=== PATIENT | female | born 1935 | race Two or more races ===

== ENCOUNTER 2018-11-25 17:45 | Emergency (ER) | payer MEDICARE, MEDICAID ==
[~2018-11-25] VITALS: Ht 152.4 cm; Wt 50.0 kg
[~2018-11-25 17:45] MED LIST: ADENOSINE 3 MG/ML 2ML VIAL IV ONE; ATROPINE SULFATE 1MG/10ML SYR ONE; EPINEPHRINE 0.1MG/ML (1:10,000) 10ML SYR ONE; NALOXONE HCL 0.4 MG/ML 1ML VIAL ONE; SODIUM BICARBONATE 8.4% 1 MEQ/ML 50ML SYR IV ONE
[2018-11-25 17:59] VITALS: BP 0/0
[2018-11-25] MEDS ORDERED: EPINEPHRINE 0.1MG/ML (1:10,000) 10ML SYR ONE (18:00)
[2018-11-25] MEDS ORDERED: METO-396 PO (18:04)
[2018-11-25] MEDS ORDERED: AMLO2.5T45 PO (18:04)
[2018-11-25] MEDS ORDERED: LOSA25TA12 PO (18:04)
[2018-11-25] MEDS ORDERED: SITA25TA3 PO (18:04)
[2018-11-25] MEDS ORDERED: NOREPINEPHRINE 4MG/250ML PMX 250 ML IV ONE (18:11)
[2018-11-25] MEDS ORDERED: VANCOMYCIN 1 G PREMIX 200 ML IV ONE (18:30)
[2018-11-25] MEDS ORDERED: PIPERACILLIN/TAZ 3.375G PREMIX 50 ML IV ONE (18:30)
[2018-11-25] MEDS ORDERED: PROPOFOL 10MG/ML 100ML 100 ML IV SCH (18:30)
[2018-11-25] MEDS ORDERED: NOREPINEPHRINE 4 MG in DEXT 5% WATER 246 ML IV ONE (18:30)
[2018-11-25] MEDS ORDERED: SODIUM CHLORIDE 0.9% 1000ML BAG (SEPSIS BOLUS) IV ONE (18:30)
[2018-11-25] MEDS ORDERED: DOPAMINE 400MG/250ML PREMIX 250 ML IV ONE ×3 (18:43→19:00)
[2018-11-25 19:14] LABS: HEMATOCRIT. 27.6 % (36.0-48.0); HEMOGLOBIN. 8.7 g/dL (12.0-16.0); MEAN CORPUSCULAR HEMOGLOBIN 29.9 pg (28.0-32.0); MEAN CORPUSCULAR VOLUME 94.9 fL (81.0-99.0); MEAN PLATELET VOLUME 10.2 fl (7.4-10.4); PLATELET 76 x1000/uL (130-400); RED BLOOD CELL COUNT 2.91 mill/uL (4.2-5.4)
[2018-11-25 19:17] LABS: CHLORIDE 98 mEq/L (98-107)
[2018-11-25 19:20] LABS: INR 1.5; PARTIAL THROMBOPLASTIN TIME 50.6 sec (23.4-31.0); PROTHROMBIN TIME 15.4 sec (9.1-11.1)
[2018-11-25 19:21] LABS: ETHANOL BLOOD < 10 mg/dL
[2018-11-25 20:30] LABS: NUCLEATED RED BLOOD CELLS 1 /100 WBC
[2018-11-25 20:31] LABS: PLATELET ESTIMATE DECREASED
== END 2018-11-25 18:58 | disposition expired ==
LOC: ER 17:45
DX: I46.9 Cardiac arrest, cause unspecified (principal); I21.19 ST elevation (STEMI) myocardial infarction involving other coronary artery of inferior wall; E11.9 Type 2 diabetes mellitus without complications; I10 Essential (primary) hypertension; E78.00 Pure hypercholesterolemia, unspecified; Z79.899 Other long term (current) drug therapy
CPT/HCPCS: 31500; 36415; 36556; 80053; 83605; 83880; 84145; 84484; 85025; 85610; 85730; 87040; 92950; 93005; 94002; 96365; 99291; G0482; J0153; J0461; J1265; J2310; J3490; J7030; J7060